=== PATIENT | female | born 1965 | race Caucasian/White ===

== ENCOUNTER → 2016-10-18 | Outpatient (CLI) | payer OTHER ==
--- NOTE | 2016-10-18 15:21 | REP ---
MRA BRAIN WITHOUT CONTRAST: HISTORY: Aneurysm. 3D TOF MRI angiography was performed at the level of the [place] of [place]. Comparison MRA carotids dated 01/16/2015. 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 The aneurysm measures 5 x 3 mm. There is no other aneurysm or arteriovenous malformation. Major intracranial vessels are patent. The right vertebral artery is dominant. 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 Signed by Milind De Luna MD 10/18/2016 03:31 P
== END ==
LOC: M RAD 12:46
PROVIDERS: ATTEND Neurological Surgery
DX: I67.1 Cerebral aneurysm, nonruptured (principal)